=== PATIENT | male | born 1950 | race Caucasian/White ===

== ENCOUNTER 2017-10-11 16:49 | Observation (INO) | payer MEDICARE, OTHER ==
[~2017-10-11] VITALS: Ht 182.9 cm; Wt 71.3 kg
[2017-10-11] MEDS ORDERED: SODIUM CHLORIDE 0.9% 1,000 ML IV ONE (18:04)
[2017-10-11] MEDS ORDERED: ALPR1TAB2 PO (18:29)
[2017-10-11] MEDS ORDERED: METH-356 PO (18:29)
[2017-10-11] MEDS ORDERED: TEMA30CA PO (18:29)
[2017-10-11] MEDS ORDERED: OXYC20TA2 PO (18:29)
[2017-10-11] MEDS ORDERED: SODIUM CHLORIDE FLUSH 10ML SYR IVF PRN (18:30)
[2017-10-11] MEDS ORDERED: PROPOFOL 10 MG/ML, 20ML ONE (18:54)
[2017-10-11] MEDS ORDERED: SODIUM CHLORIDE FLUSH 10ML SYR IVF ONE (19:00)
[2017-10-11 19:13] LABS: HEMATOCRIT 30.3 % (39.2-51.8); HEMOGLOBIN 10.2 g/dL (13.7-18.0)
[2017-10-11] MEDS ORDERED: SUCCINYLCHOLINE 20 MG/ML, 10ML ONE (19:14)
[2017-10-11] MEDS ORDERED: ROCURONIUM 10 MG/ML ONE (19:14)
[2017-10-11] MEDS ORDERED: FENTANYL PF 100 MCG/2ML ONE ×2 (19:16→20:53)
[2017-10-11] MEDS ORDERED: MIDAZOLAM 1 MG/ML, 2ML ONE (19:17)
[2017-10-11 19:22] LABS: BLOOD UREA NITROGEN 13 mg/dL (7-18)
[2017-10-11 19:24] LABS: ASPARTATE AMINO TRANSFERASE 15 U/L (15-37)
[2017-10-11] MEDS ORDERED: EPINEPHRINE 1 MG/ML, 1ML ONE (19:24)
[2017-10-11] MEDS ORDERED: ACETAMINOPHEN 325 MG TABLET PO PRN (19:30)
[2017-10-11] MEDS ORDERED: EPHEDRINE 50 MG/ML, 1ML IVPush PRN (19:30)
[2017-10-11] MEDS ORDERED: ONDANSETRON 2MG/ML, 2ML IVPush PRN (19:30)
[2017-10-11] MEDS ORDERED: OXYcodone 5 MG/5 ML ORAL.SOL UDC PO PRN (19:30)
[2017-10-11] MEDS ORDERED: MEPERIDINE/PF 25MG/0.5ML IVPush PRN (19:30)
[2017-10-11] MEDS ORDERED: LORazepam 2 MG/ML, 1ML IVPush PRN (19:30)
[2017-10-11] MEDS ORDERED: MIDAZOLAM 1 MG/ML, 2ML IV PRN (19:30)
[2017-10-11] MEDS ORDERED: METOCLOPRAMIDE 5 MG/ML, 2ML IV PRN (19:30)
[2017-10-11] MEDS ORDERED: METOPROLOL 1 MG/ML, 5ML IV PRN (19:30)
[2017-10-11] MEDS ORDERED: ALBUTEROL SULFATE 2.5 MG/3 ML NPPB PRN (19:30)
[2017-10-11] MEDS ORDERED: LABETALOL 5MG/ML, 20ML IV PRN (19:30)
[2017-10-11] MEDS ORDERED: hydrALAzine 20 MG/ML, 1ML IV PRN (19:30)
[2017-10-11] MEDS ORDERED: PROMETHAZINE 25 MG/ML, 1ML IV PRN (19:30)
[2017-10-11] MEDS ORDERED: HYDROcodone/APAP 7.5-325MG/15ML UDC PO PRN (19:30)
[2017-10-11] MEDS ORDERED: CLINDAMYCIN 150 MG/ML, 6ML ONE (19:39)
[2017-10-11] MEDS ORDERED: DEXAMETHASONE 4 MG/ML, 1ML ONE (19:46)
[2017-10-11] MEDS ORDERED: ACETAMINOPHEN 650 MG/20.3 ML UDC ONE (20:53)
[2017-10-11] MEDS ORDERED: OXYcodone 5 MG/5 ML ORAL.SOL UDC ONE (20:53)
[2017-10-11] MEDS ORDERED: ONDANSETRON ODT 4 MG PO PRN (21:00)
[2017-10-11] MEDS ORDERED: MAGNESIUM HYDROXIDE 8%, 30ML UDC PO PRN (21:00)
[2017-10-11] MEDS ORDERED: SCOPOLAMINE 1MG PATCH TD ONE (21:00)
[2017-10-11] MEDS ORDERED: ALUMINUM/MAG/SIMETHICONE 30 ML UDC PO PRN (21:00)
[2017-10-11] MEDS ORDERED: PROMETHAZINE 12.5 MG SUPP PR PRN (21:00)
[2017-10-11] MEDS ORDERED: BISACODYL 10 MG SUPP PR PRN (21:00)
[2017-10-11] MEDS ORDERED: SENNA/DOCUSATE TABLET PO PRN (21:00)
[2017-10-11] MEDS ORDERED: ONDANSETRON 2MG/ML, 2ML IV PRN (21:00)
[2017-10-11] MEDS ORDERED: HYDROcodone/APAP 5/325 TABLET PO PRN (21:00)
[2017-10-11] MEDS ORDERED: OXYcodone IR 5MG TABLET PO PRN (21:00)
[2017-10-11] MEDS: FENTANYL PF 100 MCG/2ML IV PRN ×2 (21:04→21:09)
[2017-10-11] MEDS ORDERED: HYDROmorphone 2 MG/ML, 1ML ONE (21:06)
[2017-10-11] MEDS: HYDROmorphone 1 MG/ML, 1ML IV PRN ×4 (21:07→22:03)
[2017-10-11] MEDS: DIAZEPAM 5 MG/ML, 2ML IVPush PRN ×2 (21:55→22:28)
[2017-10-11 23:17] VITALS: BP 124/75
[2017-10-11] MEDS ORDERED: VANCOMYCIN PMX 1GM/200ML 200 ML IVPB SCH (23:30)
[2017-10-12] MEDS: HYDROmorphone 1 MG/ML, 1ML IV PRN ×4 (00:12→11:53)
[2017-10-12] MEDS ORDERED: OXYcodone IR 5MG TABLET PO PRN (00:30)
[2017-10-12] MEDS ORDERED: TEMAZEPAM 30 MG CAPSULE PO PRN (00:30)
[2017-10-12 01:50] VITALS: BP 101/61
[2017-10-12] MEDS: CLINDAMYCIN PMX 600MG/50ML 50 ML IVPB SCH ×2 (03:10→11:53)
[2017-10-12 04:50] VITALS: BP 93/57
[2017-10-12 05:07] VITALS: BP 96/57
[2017-10-12] MEDS ORDERED: ASPIRIN 325 MG TABLET EC PO SCH (06:00)
[2017-10-12] MEDS ORDERED: METHADONE 10 MG TABLET ONE (08:04)
[2017-10-12 08:40] VITALS: BP 106/68
[2017-10-12] MEDS ORDERED: METHADONE 40 MG TABLET.SOL PO SCH (09:00)
[2017-10-12] MEDS ORDERED: METHADONE 10 MG TABLET PO SCH (09:00)
[2017-10-12] MEDS ORDERED: DOXY100T PO (11:19)
== END 2017-10-12 13:30 | disposition home or self-care (01) ==
LOC: OR 18:03 → INTOOBSV 18:04 → EDIP 18:04 → OR 18:22 → 4NOR 22:52
PROVIDERS: ADMIT Orthopaedic Surgery; ATTEND Orthopaedic Surgery
DX: T81.31XA Disruption of external operation (surgical) wound, not elsewhere classified, initial encounter (principal); G89.29 Other chronic pain; F17.210 Nicotine dependence, cigarettes, uncomplicated; Y92.89 Other specified places as the place of occurrence of the external cause; Z96.651 Presence of right artificial knee joint
CPT/HCPCS: 27310; 36415; 80053; 85025; 87070; 87075; 87102; 87116; 87176; 87205; 87206; 96365; 96366; 96367; 96375; 96376; 99285; G0378; J0171; J0330; J1100; J1170; J2250; J2704; J3010; J3360; J3370

== ENCOUNTER 2017-11-04 16:03 | Day surgery (SDC) | payer MEDICARE ==
[~2017-11-04] VITALS: Ht 182.9 cm; Wt 70.0 kg
[~2017-11-04 16:03] MED LIST: ALPR1TAB2 PO; DOXY100T PO; METH-356 PO; OXYC20TA2 PO; TEMA30CA PO
[2017-11-04] MEDS ORDERED: LACTATED RINGERS 1,000 ML IV SCH ×2 (16:29→16:36)
[2017-11-04] MEDS ORDERED: LIDOCAINE 1%, 2ML ONE (16:40)
[2017-11-04 16:41] VITALS: BP 130/70
[2017-11-04] MEDS ORDERED: PLEASE ENTER HEIGHT AND WEIGHT MC SCH (17:00)
[2017-11-04] MEDS ORDERED: FENTANYL PF 500 MCG/10ML ONE (17:07)
[2017-11-04] MEDS ORDERED: MIDAZOLAM 1 MG/ML, 2ML ONE ×2 (17:07→17:58)
[2017-11-04] MEDS ORDERED: ONDANSETRON 2MG/ML, 2ML ONE ×2 (17:26→17:58)
[2017-11-04] MEDS ORDERED: CEFAZOLIN 1,000 MG ONE ×2 (17:26→17:58)
[2017-11-04] MEDS ORDERED: DEXAMETHASONE 4 MG/ML, 1ML ONE ×2 (17:26→17:58)
[2017-11-04] MEDS ORDERED: PROPOFOL 10 MG/ML, 20ML ONE ×2 (17:26→17:58)
[2017-11-04] MEDS ORDERED: FENTANYL PF 250 MCG/5ML ONE (17:58)
[2017-11-04] MEDS ORDERED: KETOROLAC 30 MG/1 ML ONE (17:58)
[2017-11-04] MEDS ORDERED: KETAMINE 10 MG/ML, 20ML ONE (18:11)
[2017-11-04] MEDS ORDERED: EPINEPHRINE 1 MG/ML, 1ML ONE (18:17)
[2017-11-04] MEDS ORDERED: BUPIVACAINE/PF 0.5% ONE (18:17)
[2017-11-04] MEDS ORDERED: ONDANSETRON 2MG/ML, 2ML IVPush PRN (18:30)
[2017-11-04] MEDS ORDERED: MIDAZOLAM 1 MG/ML, 2ML IV PRN (18:30)
[2017-11-04] MEDS ORDERED: ACETAMINOPHEN 325 MG TABLET PO PRN (18:30)
[2017-11-04] MEDS ORDERED: DIAZEPAM 5 MG/ML, 2ML IVPush PRN (18:30)
[2017-11-04] MEDS ORDERED: FENTANYL PF 100 MCG/2ML IV PRN (18:30)
[2017-11-04] MEDS ORDERED: MEPERIDINE/PF 25MG/0.5ML IVPush PRN (18:30)
[2017-11-04] MEDS ORDERED: ALBUTEROL/IPRATROPIUM 2.5MG/0.5MG, 3 ML NPPB PRN (18:30)
[2017-11-04] MEDS ORDERED: METOCLOPRAMIDE 5 MG/ML, 2ML IV PRN (18:30)
[2017-11-04] MEDS ORDERED: PROMETHAZINE 25 MG/ML, 1ML IV PRN (18:30)
[2017-11-04] MEDS ORDERED: hydrALAzine 20 MG/ML, 1ML IV PRN (18:30)
[2017-11-04] MEDS ORDERED: LABETALOL 5MG/ML, 20ML IV PRN (18:30)
[2017-11-04] MEDS ORDERED: LORazepam 2 MG/ML, 1ML IVPush PRN (18:30)
[2017-11-04] MEDS ORDERED: ACETAMINOPHEN 650 MG/20.3 ML UDC ONE (18:47)
[2017-11-04] MEDS ORDERED: HYDROmorphone 2 MG/ML, 1ML ONE (18:47)
[2017-11-04] MEDS ORDERED: OXYcodone 5 MG/5 ML ORAL.SOL UDC ONE ×2 (18:48→19:00)
[2017-11-04] MEDS: HYDROmorphone 1 MG/ML, 1ML IV PRN ×4 (18:50→19:40)
[2017-11-04] MEDS: OXYcodone 5 MG/5 ML ORAL.SOL UDC PO PRN ×2 (18:52→19:00)
[2017-11-04 20:22] VITALS: BP 117/62
== END 2017-11-04 22:30 | disposition home or self-care (01) ==
LOC: OR 16:03 → 4NOR 20:18 → OR 22:30
PROVIDERS: ATTEND Plastic Surgery
DX: M96.842 Postprocedural seroma of a musculoskeletal structure following a musculoskeletal system procedure (principal); Z86.718 Personal history of other venous thrombosis and embolism; Z88.6 Allergy status to analgesic agent; Z88.1 Allergy status to other antibiotic agents; Z88.0 Allergy status to penicillin; Z88.8 Allergy status to other drugs, medicaments and biological substances
CPT/HCPCS: 15738; 87070; 87075; 87077; 87205; 93005; J0171; J0690; J1100; J1170; J1885; J2250; J2405; J2704; J3010; J3490; J7120